=== PATIENT | female | born 1950 | race Caucasian/White ===

== ENCOUNTER 2016-07-14 03:09 | Emergency (ER) | payer OTHER ==
[~2016-07-14] VITALS: Ht 167.6 cm; Wt 86.3 kg
[~2016-07-14 03:09] MED LIST: ASPI1TAB2 PO; ATOR10TA82 PO; CALC-20 PO; GLUC10007 PO; LISI-725 PO; MULT-506 PO; RANI300T2 PO
[2016-07-14 03:18] VITALS: TEMP 37.3; Ht 167.6 cm; Wt 86.3 kg
[2016-07-14] MEDS ORDERED: OXYCODONE HCL IR 5 MG TAB (IMMEDIATE RELEASE) PO STA (03:21)
--- NOTE | 2016-07-14 04:43 | EMERGENCY ROOM VISIT NOTE ---
History First contact with patient: 03:19 Chief Complaint: LEG PAIN,LEG INJURY Stated Complaint: LEG PAIN History of Present Illness The patient is a 66 year old female who presents to the Emergency Room with complaints of severe left groin pain after trying to get up after couch watching TV. Patient states any movement makes it worse nothing makes it better. She did not fall. Patient denies back pain, numbness, tingling, thigh pain, knee pain, chest pain, dyspnea, fever, chills. No prior fracture to this area. Patient follows with Dr. Ceja for her back problems. Review of Systems See HPI for pertinent positives & negatives. A total of 10 systems reviewed and were otherwise negative. Past Medical/Surgical History Medical Problems: (1) Benign hypertension (2) Benign neoplasm of colon (3) Fever (4) Gastroesophageal reflux disease (5) Hypercholesterolemia (6) Localized, primary osteoarthritis of the lower leg (7) Lung mass (8) Rheumatoid arthritis (9) Syncope (10) Tobacco user Surgical Problems: (1) H/O: hysterectomy (2) History of tonsillectomy and adenoidectomy (3) Hx of appendectomy Family History Diabetes mellitus FH: cancer Hypertension Social History Smoking Status: Current Every Day Smoker Alcohol Use: none Drug Use: none Marital Status: Housing Status: lives with significant other Occupation Status: employed Current/Historical Medications Scheduled Aspirin (Lino Aspirin Ec Low Dose), 1 TAB PO QPM Atorvastatin (Lipitor), 10 MG PO QAM Calcium Carbonate-Vitamin D (Calcium 600 + D), 2 TABS PO QAM Glucosamine Sulfate (Glucosamine), 2,000 MG PO QAM Lisinopril (Zestril), 20 MG PO QAM Multivitamin (Multivitamin), 1 TAB PO QAM Ranitidine (Zantac), 150 MG PO QAM Allergies Coded Allergies: Wasp (Verified Allergy, Severe, mouth/tongue swelling, 07/10/16) Yellow Jacket (Verified Allergy, Severe, mouth/tongue swelling, 07/10/16) NO KNOWN DRUG ALLERGIES (Verified Allergy, Unknown, NKDA, 07/10/16) Physical Exam Vital Signs Date Time Temp Pulse Resp B/P Pulse Ox O2 Delivery O2 Flow Rate FiO2 07/14/16 04:20 74 18 149/84 98 Room Air 07/14/16 03:18 37.3 66 18 147/49 100 Room Air Physical Exam VITALS: Vitals are noted on the nurse's note and reviewed by myself. Vital signs stable. GENERAL: Pleasant female, in no acute distress, nondiaphoretic, well-developed well-nourished. SKIN: Capillary reflex less than 2 seconds. HEENT: Normocephalic. PERRLA. EOMI. Nares patent. Mucous membranes moist. Neck is supple without nuchal rigidity. HEART: Regular rate and rhythm without murmurs gallops or rubs. LUNGS: Clear to auscultation bilaterally without wheezes, rales or rhonchi. No retractions or accessory muscle use. ABDOMEN: Positive bowel sounds x 4. Normal tympanic percussion. Soft, nontender, without masses or organomegaly. Reyna sign negative. No guarding or rebound tenderness. MUSCULOSKELETAL: No gross musculoskeletal defects. No pedal edema. No calf tenderness. Pelvis stable, left groin tender to palpation with increased pain with range of motion, no erythema, edema or warmth or palpable abscess, left thigh, knee nontender to palpation with pedal pulses +2 equal present bilaterally. No thoracic or lumbar tenderness on exam. NEURO: Patient was alert and oriented to person place and time. Normal sensation to light and sharp touch. No focal neurological deficits. Medical Decision & Procedures Medications Administered Medications (Trade) Dose Ordered Sig/Jenny Route Start Time Stop Time Status Last Admin Dose Admin Oxycodone HCl (Roxicodone Immediate Rel Tab) 5 mg NOW STAT PO 07/14/16 03:21 07/14/16 03:24 DC 07/14/16 03:27 5 MG ED Course Prior records reviewed and summarized above. Triage Nursing notes reviewed. Additional history obtained from family. The patient's history was concerning for left groin pain. Differential diagnosis: Etiologies such as fracture, strain, sprain, hernia, dislocation, neurovascular compromise, compartment syndrome, soft tissue injury, as well as others were entertained. Physical examination: Consistent with an isolated hip injury. ER treatment provided: OxyIR Bedrest On reassessment the patient felt better. Diagnostics interpreted by me: Imaging studies: CT LEFT HIP: Compared with CT abdomen and pelvis 01/28/16. No fracture or dislocation. Small left hip joint effusion. 1.6 x 5.5 cm fluid collection anterior to the ileus psoas muscle that is likely iliopsoas bursitis. Consider correlation with MRI Radiologist: Nikolas Skelton M.D. The patient has an isolated left iliopsoas bursitis. Patient then stated that she's had this before. Initially she denied having any problems with this hip and then remember that she did. She even states she's had this drained before. She is advised to follow-up orthopedics for further evaluation and treatment for this. Patient felt much better to be medicated as above. She has a walker at home and is advised to use this for ambulation. Patient was neurovascularly and neurologically intact. No fracture on CT.. She is advised to follow-up with her family doctor and/or orthopedic spine doctor in a few days or here in the ER sooner severe pain, numbness, tingling, worsening signs or symptoms or as needed. Patient did not have acute abdomen on exam. Pelvis is stable. No fracture. She was well-appearing. She is discharged home in stable condition with her . Discharge instructions: Follow-up family care DrSonam in 2-3 days. Case reviewed with my attending Medical Decision As above Impression Primary Impression: Iliopsoas bursitis of left hip Departure Information Dispostion Home / Self-Care Condition GOOD Referrals Victor Hugo Walker M.D. (PCP) Patient Instructions My [facility] Additional Instructions DO NOT drive, drink alcohol, operate machinery, or perform dangerous activities today. You were given medications in the ER that can affect your ability to safely function or operate a vehicle. Oxycodone (OxyIR) 5mg: Take 1-2 pills every four hours for breakthrough pain. Avoid alcohol, operating machinery or dangerous equipment, working on ladders or roofs, DRIVING, or situations where being under the influence may be dangerous. It is recommended to use an [id number] stool softener such as Colace, 100mg twice daily while taking this medication to avoid constipation. Acetaminophen(Tylenol) may be used for fever or pain. Use 1000mg every six hours as needed. Avoid using more than 3000mg in a 24 hour period. This medication can be taken if you need to drive, work, or perform activities which may be dangerous when taking narcotic pain medication. Use your walker to ambulate. Rest and avoid heavy lifting until your symptoms resolve and then gradually return to full activity. A good rule of thumb is if it hurts your hip to perform a certain activity, then it should be avoided until you are healthy again. A heating pad, warm compresses, or a hot shower may help with tight muscles and can be done several times a day as needed. Continue current medications. Return to the ER immediately for any numbness, tingling, severe pain, loss of control of your bowels or bladder, inability to walk, or as needed. Follow up with your primary care physician/orthopedics within 3-5 days for a recheck of your current condition.
[2016-07-14] MEDS ORDERED: OXYC1TAB3 PO (04:44)
[2016-07-14] MEDS ORDERED: OXYCODONE IR HOME PACK PO ONE (04:45)
[2016-07-14 04:52] VITALS: BP 149/84; PULSE 74; O2SAT 98
--- NOTE | 2016-07-14 07:08 | EMERGENCY ROOM VISIT NOTE ---
ED Visit Note First contact with patient: 03:19 I have personally evaluated and examined this patient. I agree with assessment and plan of Steffany Villalpando PA-C. Left bursitis consistent with history of having happened before. No current evidence of sepsis nor n/v compromise.
--- NOTE | 2016-07-14 08:41 | DIAGNOSTIC IMAGING REPORT ---
CT SCAN OF THE LEFT HIP WITHOUT IV CONTRAST CLINICAL HISTORY: Left hip and groin pain. No reported history of trauma. COMPARISON STUDY: Radiographs of the bony pelvis dated 02/01/2016. TECHNIQUE: CT scan of the left hip is performed from the bony pelvis to the proximal femoral shaft. Images are reviewed in the axial, sagittal, and coronal planes. IV contrast was not administered for this examination. Note that interpretation is suboptimal without current plain film correlate. CT DOSE: 811.25 mGy.cm FINDINGS: The skeletal structures are osteopenic. No fracture is identified in the left hip or the visualized left hemipelvis. Minimal arthritic change is noted in the left hip. No lytic or blastic lesions are identified. Enthesophytes arise from the greater trochanter of the proximal femur. A small osteochondroma arises posteriorly from the subtrochanteric femur and measures up to 1.9 cm. There is a trace joint effusion. Mild bursal fluid is noted. The musculature surrounding the left hip and in the upper thigh is normal in appearance. There is no left pelvic sidewall or left inguinal lymphadenopathy. The bladder is normal as imaged. The uterus is surgically absent. IMPRESSION: 1. Generalized osteopenia. No fracture is seen. 2. Findings suggest iliopsoas bursitis. 3. Trace joint effusion. Dictated: 07/14/2016 7:57 AM Transcribed: 07/14/2016 8:40 AM [facility] Electronically signed by: Rolando Stanley M.D. 07/14/2016 8:48 AM Dictated Date/Time: 07/14/2016 7:57 AM
[2016-10-23] MEDS ORDERED: FOLI1TAB7 PO (06:04)
[2016-10-23] MEDS ORDERED: MTH25 PO (06:04)
== END 2016-07-14 04:59 | disposition home or self-care (01) ==
LOC: EDBD 03:09 → C.EDA 03:10
DX: M76.12 Psoas tendinitis, left hip (principal); I10 Essential (primary) hypertension; K21.9 Gastro-esophageal reflux disease without esophagitis; E78.00 Pure hypercholesterolemia, unspecified; M06.9 Rheumatoid arthritis, unspecified; Z86.018 Personal history of other benign neoplasm; F17.210 Nicotine dependence, cigarettes, uncomplicated; Z83.3 Family history of diabetes mellitus; Z80.9 Family history of malignant neoplasm, unspecified; Z82.49 Family history of ischemic heart disease and other diseases of the circulatory system; Z79.82 Long term (current) use of aspirin; Z79.899 Other long term (current) drug therapy

== ENCOUNTER 2016-07-27 10:21 | Observation (INO) | payer OTHER ==
--- NOTE | 2016-07-10 08:54 | PAT Medication Instructions ---
Service Date Jul 10, 2016. Current Home Medication List Aspirin (Lino Aspirin Ec Low Dose), 1 TAB PO QPM Atorvastatin (Lipitor), 10 MG PO QAM Calcium Carbonate-Vitamin D (Calcium 600 + D), 2 TABS PO QAM Glucosamine Sulfate (Glucosamine), 2,000 MG PO QAM Lisinopril (Zestril), 20 MG PO QAM Multivitamin (Multivitamin), 1 TAB PO QAM Ranitidine (Zantac), 150 MG PO QAM Medication Instructions For Your Scheduled Surgery - Hold the following medications 2 weeks prior to surgery: Glucosamine Sulfate (Glucosamine), 2,000 MG PO QAM - Hold the following medications the morning of surgery: Lisinopril (Zestril), 20 MG PO QAM Multivitamin (Multivitamin), 1 TAB PO QAM Calcium Carbonate-Vitamin D (Calcium 600 + D), 2 TABS PO QAM - Take the following medications the morning of surgery with a sip of water OTHERWISE NOTHING TO EAT OR DRINK AFTER MIDNIGHT: Ranitidine (Zantac), 150 MG PO QAM Atorvastatin (Lipitor), 10 MG PO QAM - Take the following medications as scheduled the night before surgery: Aspirin (Lino Aspirin Ec Low Dose), 1 TAB PO QPM If you have any questions please call us at [phone] or [phone] or [phone]
[2016-07-10 09:25] LABS: BASO % 0.5 %; BASO ABS # 0.03 K/uL (0-0.2); COMPLETE YES; EOS % 0.5 %; HEMATOCRIT 38.8 % (37-47); IG% 0.2 %; LYMPH % 21.2 %; MEAN CELL VOLUME 92.2 fL (80-100); MEAN CORPUSCULAR HEMOGLOBIN 31.1 pg (25-34); MEAN CORPUSCULAR HGB CONC 33.8 g/dl (32-36); MEAN PLATELET VOLUME 10.3 fL (7.4-10.4); NEUT % 70.6 %; PLATELET COUNT 211 K/uL (130-400); RED BLOOD COUNT 4.21 M/uL (4.2-5.4); WHITE BLOOD COUNT 6.12 K/uL (4.8-10.8)
[2016-07-10 09:26] LABS: URINE APPEARANCE CLEAR (CLEAR); URINE BILIRUBIN NEG (NEG); URINE COLOR YELLOW; URINE NITRITE NEG (NEG); URINE PH 6.5 (4.5-7.5); URINE SPECIFIC GRAVITY 1.005 (1.000-1.030); UROBILINOGEN NEG (NEG)
[2016-07-10 09:33] LABS: PROTHROMBIN TIME (PATIENT) 10.2 SECONDS (9.0-12.0)
[2016-07-10 09:34] LABS: MANUAL MICROSCOPIC REQUIRED? NO; REVIEW REQ? NO
[2016-07-10 11:18] LABS: BUN/CREATININE RATIO 13.5 (10-20); CALCIUM 9.6 mg/dl (8.5-10.1); CREATININE 1.1 mg/dl (0.60-1.20); POTASSIUM 4.5 mmol/L (3.5-5.1)
--- NOTE | 2016-07-24 10:23 | HISTORY & PHYSICAL EXAMINATION ---
DATE OF ADMISSION: 07/27/2016 SUBJECTIVE CHIEF COMPLAINT: She presents with low back pain and lower right extremity numbness, tingling and pain. HISTORY OF PRESENT ILLNESS: Estrella is a 66-year-old female who presents to the office today with significant low back pain, right leg radiculopathy. She has significant back pain with standing, walking and ambulation. His pain is alleviated with rest. She described no fevers, sweats or chills. She has tried conservative measures including some therapy medication. PAST MEDICAL HISTORY: Primarily history includes rheumatoid arthritis, high blood pressure. PAST SURGICAL HISTORY: Includes hysterectomy and appendectomy. ALLERGIES: No allergies to medications. CURRENT MEDICATIONS: List includes omeprazole, ranitidine, lisinopril, glucosamine, multivitamin, aspirin and calcium with vitamin D. FAMILY MEDICAL HISTORY: Negative for heart disease, stroke, diabetes, blood clots, DVTs and cancer. SOCIAL HISTORY: , never drinks. Does not use tobacco. Moderately active lifestyle. REVIEW OF SYSTEMS: CONSTITUTIONAL: Positive for fatigue. RESPIRATORY: Positive for cough. GASTROINTESTINAL: Positive for nausea, heartburn. MUSCULOSKELETAL: Positive for weakness. PHYSICAL EXAMINATION: GENERAL: She is alert and oriented x3. She is in a moderate amount of distress with pain. HEAD, EYES, EARS, NOSE, AND THROAT EXAMINATION: Normal. EXTREMITIES: She does have demonstrable significant pain with straight leg raise on the right. No pain with straight leg raises on the left. No deficit as far as motor strength is concerned on the left versus the right. She does have appropriate reflexes bilaterally. No clonus was noted. DIAGNOSTIC STUDIES: MRI was reviewed in our office today. There is a significant disc herniation impinging upon the right exiting neural foramen at the L4-5 lumbar segment. There is no significant spondylolisthesis. ASSESSMENT DIAGNOSES: Significant disc herniation at L4-5 level impinging upon the right exiting neural foramen. PLAN: At this time, we did offer her surgery today. Surgery would be a discectomy at the L4-5 level, removal of that disc impinging on the right neural foramen. We will assess her intraoperatively for any instability, may possibly use Globus instrumentation to fuse her if she becomes unstable intraoperatively. For now, will just be a formal discectomy at L4-5. We discussed the surgery at length. We discussed the risks and benefits as well. We did provide her with a back brace for support postoperatively. Pain meds were given as well. We will follow her up 2 weeks postop for evaluation and suture removal.
[~2016-07-27] VITALS: Ht 167.6 cm; Wt 84.1 kg
[~2016-07-27 10:21] MED LIST changes: +CEFAZOLIN 2000 MG/60 ML D5W 60 ML IV SCH; +LACTATED RINGER'S 1000ML 1,000 ML IV SCH; +NSS 1000ML IV SCH; +OXYC1TAB3 PO
[2016-07-27 10:35] VITALS: Ht 167.6 cm; Wt 84.1 kg
[2016-07-27] MEDS ORDERED: MIDAZOLAM HCL 1 MG/ML 2ML VIAL ONE (12:00)
[2016-07-27] MEDS ORDERED: FENTANYL CITRATE INJ 50 MCG/1 ML 2 ML VIAL ONE ×2 (12:00)
[2016-07-27] MEDS ORDERED: LIDOCAINE HCL 2% 2 ML VIAL (20MG/ML) ONE (13:12)
[2016-07-27] MEDS ORDERED: ONDANSETRON INJ 2 MG/ML 2 ML VIAL ONE (13:12)
[2016-07-27] MEDS ORDERED: NEOSTIGMINE METHYLSULFATE 5 MG/5 ML SYR ONE (13:12)
[2016-07-27] MEDS ORDERED: EpHEDrine SULFATE 50MG/5ML SYR ONE (13:12)
[2016-07-27] MEDS ORDERED: LARYING-O-JET KIT (LTA) EXT ONE ×2 (13:12)
[2016-07-27] MEDS ORDERED: DEXAMETHASONE SOD INJ 4 MG/ML VIAL ONE (13:12)
[2016-07-27] MEDS ORDERED: CISATRACURIUM BESYLATE IV SOLN 2 MG/ML 10 ML VIAL ONE (13:12)
[2016-07-27] MEDS ORDERED: PROPOFOL IV EMULSION 10 MG/ML 20 ML VIAL IV ONE (13:12)
[2016-07-27] MEDS ORDERED: GLYCOPYRROLATE INJ 0.2 MG/ML VIAL ONE ×2 (13:12→14:56)
[2016-07-27] MEDS ORDERED: GELATIN SPONGE SZ 100 ONE (13:33)
[2016-07-27] MEDS ORDERED: BUPIVACAINE/EPINEPHRINE 0.5% MPF 1:200,000 30 ML VIAL ONE (13:33)
[2016-07-27] MEDS ORDERED: THROMBIN FOR SOLN 20000 UNIT KIT ONE (13:33)
[2016-07-27] MEDS ORDERED: VANCOMYCIN HCL 1000MG/20ML VIAL ONE (13:34)
[2016-07-27] MEDS ORDERED: BACITRACIN 50000 UNIT VIAL ONE (13:34)
--- NOTE | 2016-07-27 13:55 | History & Physical Bridge Note ---
H&P Re-Evaluation Bridge Note: I have examined the patient, reviewed the History & Physical and in the interval since the performance of the History & Physical I have noted the following changes of clinical significance: No changes noted
[2016-07-27] MEDS ORDERED: HYDROmorphone INJ 2 MG/ML SYR/VIAL ONE (14:53)
--- NOTE | 2016-07-27 15:40 | [facility] Post Operative Brief Note ---
Immediate Operative Summary Operative Date Jul 27, 2016. Pre-Operative Diagnosis Disc herniation L4-L5 Post-Operative Diagnosis same as pre-operative Procedure(s) Performed L4-L5 Discectomy Surgeon Dr. Juan Diego Ceja Actimize Architect Surgeon(s) Lawson Ludwig PA-C Estimated Blood Loss 75ml Findings stenosis and herniation Specimens none per surgeon Complication(s) None Disposition Recovery Room / PACU
[2016-07-27] MEDS ORDERED: LORAZEPAM INJ 1 MG in SYRINGE 0.5 ML IV PRN (15:45)
[2016-07-27] MEDS ORDERED: ONDANSETRON INJ 2 MG/ML 2 ML VIAL IV PRN ×2 (15:45)
[2016-07-27] MEDS ORDERED: EpHEDrine SULFATE INJ 50 MG/ML AMP IV PRN (15:45)
[2016-07-27] MEDS ORDERED: HYDROmorphone INJ 1 MG/ML SYR IV PRN (15:45)
[2016-07-27] MEDS ORDERED: OXYCODONE/ACETAMINOPHEN 5-325 TAB PO PRN ×2 (15:45)
[2016-07-27] MEDS ORDERED: MAGNESIUM HYDROXIDE SUSP 30 ML UDC PO PRN (15:45)
[2016-07-27] MEDS ORDERED: PROMETHAZINE HCL INJ 12.5 MG in SODIUM CHLORIDE 0.9% 50ML 50 ML IV PRN ×4 (15:45)
[2016-07-27] MEDS ORDERED: NALOXONE HCL 0.4 MG/1 ML VIAL/CARP IV PRN (15:45)
[2016-07-27] MEDS ORDERED: METOCLOPRAMIDE HCL INJ 5 MG/ML 2 ML VIAL IV PRN (15:45)
[2016-07-27] MEDS ORDERED: LABETALOL HCL IV 5 MG/ML 20ML IV PRN (15:45)
[2016-07-27] MEDS ORDERED: ATROPINE SULFATE 0.1 MG/ML 5ML SYR IV PRN (15:45)
[2016-07-27] MEDS ORDERED: LORAZEPAM 1 MG TAB PO PRN (15:45)
[2016-07-27] MEDS ORDERED: HYDROmorphone INJ 2 MG/ML SYR/VIAL IV PRN (15:45)
[2016-07-27] MEDS ORDERED: HYDROmorphone INJ 0.5 MG/0.5 ML SYR IV PRN (15:45)
[2016-07-27] MEDS ORDERED: LABETALOL HCL IV 5 MG/ML 20ML IV ONE ×2 (16:05→16:20)
--- NOTE | 2016-07-27 16:15 | Anesthesiology Progress Note ---
Anesthesia Post Op Note Date & Time Jul 27, 2016 at 16:14 Vital Signs Pain Intensity: 0 Vital Signs Past 12 Hours Date Time Temp Pulse Resp B/P Pulse Ox O2 Delivery O2 Flow Rate FiO2 07/27/16 16:05 60 16 179/73 100 Nasal Cannula 4 07/27/16 15:55 75 16 185/84 100 Mask 10 07/27/16 15:46 92 16 177/74 100 Mask 10 07/27/16 15:37 36.7 91 16 177/83 100 Mask 10 Notes Mental Status: alert / awake / arousable, participated in evaluation Pt Amnestic to Procedure: Yes Nausea / Vomiting: adequately controlled Pain: adequately controlled Airway Patency, RR, SpO2: stable & adequate BP & HR: stable & adequate Hydration State: stable & adequate Anesthetic Complications: no major complications apparent
--- NOTE | 2016-07-27 16:35 | OPERATIVE REPORT ---
DATE OF OPERATION: 07/27/2016 PREOPERATIVE DIAGNOSIS: Disc herniation L4-5 lumbar and stenosis. POSTOPERATIVE DIAGNOSIS: Same. PROCEDURE: Include a laminectomy and discectomy, L4-L5 lumbar spine. SURGEON: Dr. Ceja. PROCESSING OPERATOR: Lawson Ludwig PA-C. COMPLICATIONS: Zero. BLOOD LOSS: Less than 100 mL. DESCRIPTION OF PROCEDURE: The patient taken to the operating room, a general intubated anesthetic provided to the patient, placed prone, prepped and draped sterile. We made a skin incision from 4 to the sacrum, dissecting the soft tissue. We localized the area with C-arm guidance. We cut down the laminectomy, favoring the right hand side, foraminotomy, partial facetectomy. We were able to retract the dura and do a formal discectomy with various sized pituitary rongeurs. This was first incised with 15 scalpel blade. We completed the foraminotomy, the nerve roots were probed and they were free of obstruction. We irrigated and closed over Hemovac drain over vancomycin powder with #1 Vicryl suture, 2-0 and 3-0 nylon on the skin. Sterile dressing applied. The patient returned to PACU stable. No apparent intraoperative complications. Sponge and needle count correct. No implants used. I attest to the content of the Intraoperative Record and any orders documented therein. Any exceptio ns are noted below.
--- NOTE | 2016-07-27 16:45 | DIAGNOSTIC IMAGING REPORT ---
INTRAOPERATIVE RADIOGRAPH CLINICAL HISTORY: L4-L5 discectomy. Fluoroscopy time: 3 seconds. FINDINGS: A single spot fluoroscopic view of the lower lumbar spine is presented. A surgical probe projects posteriorly at the level of L4. IMPRESSION: Intraoperative image from L4 -L5 discectomy as above. Electronically signed by: Rolando Stanley M.D. 07/27/2016 4:42 PM Dictated Date/Time: 07/27/2016 4:42 PM
[2016-07-27 17:00] VITALS: O2SAT 100
[2016-07-27 17:20] VITALS: BP 147/80; PULSE 66; TEMP 36.4; O2SAT 100
[2016-07-27 17:50] VITALS: BP 143/78; PULSE 68; TEMP 36.4; O2SAT 99
[2016-07-27] MEDS: SODIUM CHLORIDE 0.9% 1000ML 1,000 ML IV SCH (18:34)
[2016-07-27 18:52] VITALS: BP 176/73; PULSE 74; TEMP 36.3; O2SAT 97
[2016-07-27] MEDS ORDERED: ASPIRIN 81 MG ECTAB PO SCH (21:00)
[2016-07-27 21:06] VITALS: BP 151/75; PULSE 51; TEMP 36.6; O2SAT 98
[2016-07-27] MEDS: CEFAZOLIN IV 2,000 MG in DEXTROSE 5% 50ML 50 ML IV SCH (21:58)
[2016-07-27] MEDS: DEXAMETHASONE INJ 10 MG in SYRINGE 0 ML IV SCH (21:58)
[2016-07-27] MEDS: ACETAMINOPHEN 325 MG TAB PO PRN (21:58)
[2016-07-27 23:02] VITALS: BP 146/74; PULSE 55; TEMP 36.4; O2SAT 99
[2016-07-28] MEDS ORDERED: IV FLUIDS COMPLETED PRN (00:15)
[2016-07-28 03:26] VITALS: BP 120/67; PULSE 69; TEMP 36.4; O2SAT 97
[2016-07-28] MEDS: SODIUM CHLORIDE 0.9% 1000ML 1,000 ML IV SCH (04:09)
[2016-07-28] MEDS: DEXAMETHASONE INJ 10 MG in SYRINGE 0 ML IV SCH ×2 (05:19→13:34)
[2016-07-28] MEDS: CEFAZOLIN IV 2,000 MG in DEXTROSE 5% 50ML 50 ML IV SCH ×2 (05:19→13:42)
[2016-07-28] MEDS ORDERED: NURSING VERBAL MED ORDER ONE (05:30)
[2016-07-28] MEDS ORDERED: BISACODYL 5 MG TABEC PO PRN (06:00)
[2016-07-28] MEDS ORDERED: BISACODYL 10 MG SUPP PR PRN (06:00)
--- NOTE | 2016-07-28 07:54 | Discharge Instructions ---
Discharge Instructions Date of Service Jul 28, 2016. Admission Reason for Admission: Disc Herniation Discharge Discharge Diagnosis / Problem: as above Discharge Goals Goal(s): Improve function Activity Recommendations Activity Limitations: as noted below Lifting Limitations: until after follow-up appointment Exercise/Sports Limitations: until after follow-up appointment May Resume Sexual Activity: after follow-up appointment Shower/Bathe: keep incision dry . Current Hospital Diet Patient's current hospital diet: Regular Diet Discharge Diet Recommended Diet: Regular Diet Procedures Procedures Performed: L4-L5 Discectomy Pending Studies Studies pending at discharge: no Medical Emergencies . Who to Call and When: Medical Emergencies: If at any time you feel your situation is an emergency, please call 911 immediately. . Non-Emergent Contact Non-Emergency issues call your: Surgeon . "Provider Documentation" section prepared by Juan Diego Ceja. . VTE Core Measure Inpt VTE Proph given/why not?: Treatment not indicated
--- NOTE | 2016-07-28 08:01 | ORTHOPEDICS PROGRESS NOTE ---
DATE: 07/28/2016 SUBJECTIVE: Moderate complaints of pain. No chest pain or shortness of breath. She is alert, oriented. Vital signs stable, 36.4 temperature. Moves all extremities. ASSESSMENT: Status post lumbar spine laminectomy and discectomy L4-L5 lumbar spine. DISPOSITION: We will have her up ambulatory here today and this morning. Tentatively, she may be able to go home later on today around 3 or 4 o'clock in the afternoon depending on how she tolerates the morning.
[2016-07-28 08:05] VITALS: BP 105/63; PULSE 55; TEMP 36.7; O2SAT 97
--- NOTE | 2016-07-28 08:53 | Anesthesiology Progress Note ---
Anesthesia Post Op Note Date & Time Jul 28, 2016 at 08:51 Vital Signs Pain Intensity: 4.0 Vital Signs Past 12 Hours Date Time Temp Pulse Resp B/P Pulse Ox O2 Delivery O2 Flow Rate FiO2 07/28/16 08:08 Nasal Cannula 07/28/16 08:05 36.7 55 18 105/63 97 Room Air 07/28/16 03:26 36.4 69 16 120/67 97 Room Air 07/27/16 23:22 Room Air 07/27/16 23:02 36.4 55 16 146/74 99 Room Air 07/27/16 21:06 36.6 51 16 151/75 98 Room Air Notes Mental Status: alert / awake / arousable, participated in evaluation Pt Amnestic to Procedure: Yes Nausea / Vomiting: adequately controlled Pain: adequately controlled Airway Patency, RR, SpO2: stable & adequate BP & HR: stable & adequate Hydration State: stable & adequate Anesthetic Complications: no major complications apparent
[2016-07-28] MEDS ORDERED: ATORVASTATIN 10 MG TAB PO SCH (09:00)
[2016-07-28] MEDS ORDERED: RANITIDINE HCL 150 MG TAB PO SCH (09:00)
[2016-07-28] MEDS ORDERED: MULTIVITAMIN TAB PO SCH (09:00)
[2016-07-28] MEDS ORDERED: CALCIUM 600MG + VIT D 400 IU TAB PO SCH (09:00)
[2016-07-28] MEDS ORDERED: LISINOPRIL 20 MG TAB PO SCH (09:00)
[2016-07-28] MEDS ORDERED: GLUCOSAMINE SULFATE 500 MG CAP PO SCH (09:00)
[2016-07-28] MEDS ORDERED: POLYETHYLENE (MIRALAX) 17 GM PACK PO SCH (09:00)
[2016-07-28 09:03] VITALS: BP 105/63; PULSE 55; TEMP 36.7; O2SAT 97
[2016-07-28 10:35] VITALS: BP 127/73; PULSE 58; TEMP 36.7; O2SAT 98
[2016-07-28] MEDS: ACETAMINOPHEN 325 MG TAB PO PRN (11:26)
[2016-07-28 14:56] VITALS: BP 164/70; PULSE 70; TEMP 37.1; O2SAT 99
--- NOTE | 2016-08-06 11:46 | DISCHARGE SUMMARY ---
SUBJECTIVE: Minimal complaints of pain, no neurological deficit. No fevers, sweats, chills. OBJECTIVE: Wound clean, dry. Neurologically intact. ASSESSMENT: Status post discectomy lumbar spine, improved short run. DISPOSITION: Instructions, precautions, education. Follow up in the office in 10 days. Keep her wound clean and dry at all times. Careful with bending, stooping and lifting and instructions provided.
[2016-10-23] MEDS ORDERED: MTH25 PO (06:04)
[2016-10-23] MEDS ORDERED: FOLI1TAB7 PO (06:04)
== END 2016-07-28 16:24 | disposition home or self-care (01) ==
LOC: ENRESERVDT → ENRESERVTM → C.ACU 10:21 → C.3E 10:40
PROVIDERS: ADMIT Orthopaedic Surgery Orthopaedic Surgery of the Spine; ATTEND Orthopaedic Surgery Orthopaedic Surgery of the Spine
DX: M51.26 Other intervertebral disc displacement, lumbar region (principal); M48.06 Spinal stenosis, lumbar region; M06.9 Rheumatoid arthritis, unspecified; I10 Essential (primary) hypertension

== ENCOUNTER → 2016-10-23 | Day surgery (SDC) | payer OTHER ==
[~2016-10-23] VITALS: Ht 167.6 cm; Wt 84.0 kg
[~2016-10-23] MED LIST changes: +ACETAMINOPHEN 500 MG TAB PO PRN; -ATOR10TA82 PO; +ATOR10TA88 PO; -CEFAZOLIN 2000 MG/60 ML D5W 60 ML IV SCH; +FOLI1TAB7 PO; -LACTATED RINGER'S 1000ML 1,000 ML IV SCH; +MTH25 PO; -NSS 1000ML IV SCH
[2016-10-23 06:05] VITALS: BP 146/59; PULSE 82; TEMP 36.6; O2SAT 97; Ht 167.6 cm; Wt 84.0 kg
[2016-10-23 10:39] VITALS: BP 145/65; PULSE 60; TEMP 36.8; O2SAT 97
--- NOTE | 2016-10-23 10:47 | DIAGNOSTIC IMAGING REPORT ---
LUMBAR SPINE WITHOUT CLINICAL HISTORY: 66 years-old Female presenting with POST MYELOGRAM, unsuccessful attempt at myelogram, ordering physician would like to proceed with noncontrast CT. TECHNIQUE: Multidetector CT of the lumbar spine was performed without the use of intravenous contrast. IV contrast: None. A dose lowering technique was used consistent with the principles of ALARA (as low as reasonably achievable). COMPARISON: MR from 06/29/2016. CT DOSE: The estimated cumulative dose is 952.64 mGy.cm. FINDINGS: Pigment Making Supervisor topogram: Unremarkable. Vertebral body heights and alignment maintained. Intervertebral disc height loss preserved. Vacuum disc phenomenon noted at L4-5. Disc bulges evident at L3-4 through L5-S1. Presence of gas along the epidural space along the right L3-4 level likely relates to attempted myelogram. Apparent gas along the right lateral recess at L4-5 may relate to vacuum disc phenomenon-related gas within a disc protrusion rather than epidural postprocedural gas as this level was not targeted. Postsurgical changes of partial resection of the L4 spinous process. Multilevel degenerative changes further detailed below: T12-L1: Normal. L1-2: Normal. L2-3: Mild facet arthropathy. No significant neural foraminal or spinal canal narrowing. L3-4: Disc bulge with significant facet arthropathy and ligamentum flavum thickening result in narrowing of the spinal canal. Mild bilateral neural foraminal narrowing. L4-5: Disc bulge and suspected protrusion in the right lateral recess with significant facet arthropathy and ligamentum flavum thickening result in anterolateral spinal canal narrowing. However, partial posterior decompression is also noted. Moderate bilateral neural foraminal narrowing. Mass effect on the exiting right L4 nerve root likely. L5-S1: Disc bulge and facet arthropathy without significant neural foraminal or spinal canal narrowing. Infiltration overlying the surgical bed likely relates to medication administration and attempted myelogram. No convincing evidence of paraspinal inflammatory change. Atherosclerosis of the abdominal aorta. Extrarenal pelvises bilaterally. IMPRESSION: 1. Multilevel degenerative changes in the lower lumbar spine. Degenerative changes are most severe at L4-5 with disc bulge and suspected disc protrusion effacing the right lateral recess. Mass effect on the exiting L4 nerve root likely. This would be better demonstrated on noncontrast MR. Spinal canal narrowing anterolaterally at L4-5, although postsurgical changes of partial resection of the L4 spinous process results in posterior decompression. Varying degrees of neural foraminal narrowing most severe at L4-5. 2. Postprocedural gas along the right lateral epidural space at L3-4. Electronically signed by: Johnathan Crouch M.D. 10/23/2016 10:46 AM Dictated Date/Time: 10/23/2016 10:32 AM
--- NOTE | 2016-10-23 10:55 | Discharge Instructions ---
Discharge Instructions Procedure Procedure Date: Oct 23, 2016. Reason for visit: Lumbar Spine, Disc Herniation. Discharge Discharge Date: Oct 23, 2016. Discharge Diagnosis: Unsuccessful myelogram for lumbar spine herniation Medications Restart Stopped Medication(s): Resume home meds. Instructions Activity Recommendations: No limitations Return to School/Work: no limitations Recommended Home Diet: No Limitations Provider Instructions: Thecal sac not accessed. No intrathecal administration of contrast or return of CSF. Therefore, patient should have no restrictions. Discharge home at noon. Allergies Coded Allergies: Wasp (Verified Allergy, Severe, mouth/tongue swelling, 10/23/16) Yellow [place]et (Verified Allergy, Severe, mouth/tongue swelling, 10/23/16) [place] Recommendations: Call your doctor if: * Temperature above 101 degrees * Pain not relieved by pain medicine ordered * There is increased drainage or redness from any incision * You have any unanswered questions or concerns. Your Doctors Instructions noted above were prepared by provider Johnathan Crouch. Patient Signature Section: Patient Instructions Signature Page Estrella Delacruz Patient (or Guardian) Signature/Date: I have read and understand the instructions given to me by my caregivers. Caregiver/RN/Doctor Signature/Date: The above-named patient and/or guardian has received patient instructions on this date. + Original Patient Signature Page (only) stays with chart. Please make copy for patient.
[2016-10-23 11:11] VITALS: BP 143/74; PULSE 55; O2SAT 97
[2016-10-23 11:56] VITALS: BP 156/68; PULSE 63; TEMP 36.3; O2SAT 99
--- NOTE | 2016-10-23 13:45 | DIAGNOSTIC IMAGING REPORT ---
FLUORO UP TO 1 HOUR CLINICAL HISTORY: 66 years-old Female presenting with degenerative disc disease. COMPARISON: MR from 06/29/2016. PROCEDURE: The procedure, risks and benefits were discussed with the patient including the risk of spinal headache, bleeding and infection. The patient agreed to the procedure and informed written consent was obtained. The procedure was performed by Dr. Crouch following a timeout. The L3-4 interspinous space was targeted. Skin overlying the space was prepped and draped in the usual aseptic fashion and local anesthesia was achieved with 1% lidocaine. Under intermittent fluoroscopic guidance, attempts were made to introduce a 22-gauge 3 1/2 inch spinal needle into the thecal sac. Unfortunately, this was unsuccessful. The patient was unable to proceed with further attempts. Therefore, no intrathecal contrast was administered. Fluoroscopy dosage: Not available. mGys. Fluoroscopy time: 1.6 minutes. Number of fluoroscopic spot images: 0. IMPRESSION: 1. Unsuccessful fluoroscopic guided myelogram. After discussion with the ordering physician, subsequent CT will be performed without the use of intravenous contrast. If there is continuing clinical concern, noncontrast MR could substitute for CT myelogram in the future. Electronically signed by: Johnathan Crouch M.D. 10/23/2016 1:44 PM Dictated Date/Time: 10/23/2016 1:40 PM
== END | disposition home or self-care (01) ==
LOC: C.ACU 05:44
PROVIDERS: ATTEND Orthopaedic Surgery Orthopaedic Surgery of the Spine
DX: M51.26 Other intervertebral disc displacement, lumbar region (principal); Z53.8 Procedure and treatment not carried out for other reasons

== ENCOUNTER → 2016-10-28 | Outpatient (CLI) | payer OTHER ==
[~2016-10-28] MED LIST changes: -ACETAMINOPHEN 500 MG TAB PO PRN
[2016-10-28 16:51] LABS: BASO % 0.4 %; BASO ABS # 0.03 K/uL (0-0.2); COMPLETE YES; EOS % 1.2 %; HEMATOCRIT 41.9 % (37-47); IG% 0.1 %; LYMPH % 31.9 %; LYMPH ABS # 2.15 K/uL (1.2-3.4); MEAN CELL VOLUME 92.3 fL (80-100); MEAN CORPUSCULAR HEMOGLOBIN 30.2 pg (25-34); MEAN CORPUSCULAR HGB CONC 32.7 g/dl (32-36); MEAN PLATELET VOLUME 10.5 fL (7.4-10.4); MONO % 7.7 %; NEUT % 58.7 %; PLATELET COUNT 260 K/uL (130-400); RED BLOOD COUNT 4.54 M/uL (4.2-5.4); WHITE BLOOD COUNT 6.74 K/uL (4.8-10.8)
[2016-10-28 16:55] LABS: URINE APPEARANCE CLEAR (CLEAR); URINE BILIRUBIN NEG (NEG); URINE COLOR YELLOW; URINE NITRITE NEG (NEG); URINE PH 6.5 (4.5-7.5); UROBILINOGEN NEG (NEG)
[2016-10-28 17:00] LABS: BLOOD UREA NITROGEN 15 mg/dl (7-18); BUN/CREATININE RATIO 12.2 (10-20); CALCIUM 9.6 mg/dl (8.5-10.1); CARBON DIOXIDE 30 mmol/L (21-32); CHLORIDE 105 mmol/L (98-107); GLUCOSE 128 mg/dl (70-99); POTASSIUM 3.7 mmol/L (3.5-5.1); SODIUM 141 mmol/L (136-145)
[2016-10-28 17:01] LABS: INR 0.9 (0.9-1.1); PROTHROMBIN TIME (PATIENT) 10.1 SECONDS (9.0-12.0)
[2016-10-28 17:06] LABS: MANUAL MICROSCOPIC REQUIRED? NO; REVIEW REQ? YES
--- NOTE | 2016-10-28 17:40 | DIAGNOSTIC IMAGING REPORT ---
MRI OF THE LUMBAR SPINE WITHOUT CONTRAST CLINICAL HISTORY: Low back pain radiating into right lower extremity. Previous spine surgery. COMPARISON STUDY: Lumbar spine MRI June 29, [address] October 23, 2016. TECHNIQUE: Utilizing a 1.5 [place] magnet and dedicated coil, multiplanar, multiecho imaging of the lumbar spine was performed without IV contrast. FINDINGS: For purposes of numbering on this exam, the L5-S1 disc space is assigned to axial image 27 of 30. There is 4 mm anterolisthesis of L4 and L5. There are postoperative findings consistent with an L4-5 discectomy and laminectomy. Signal abnormality within the operative bed is within normal limits. There is no intracanalicular mass or fluid collection. Conus terminates at the mid L1 level. The paravertebral soft tissues are unremarkable. There is no suspicious marrow replacement. There is no fracture. L1-2: The central canal and neural foramen are patent. L2-3: The central canal and neural foramen are patent. There is mild facet arthrosis. L3-4: There is mild disc bulge, ligamentous hypertrophy and facet arthrosis that result in mild narrowing of the central canal, lateral recesses and neural foramen. L4-5: There is a disc bulge with a right paracentral 1 cm x 0.5 cm adjacent abnormality that suggests a disc protrusion. Postsurgical change could appear similar. There is moderate narrowing of the right lateral recess and right neural foramen. There is mild to moderate narrowing of the left neural foramen. L5-S1: Central canal and neural foramen are patent. IMPRESSION: 1. Status post L4-L5 discectomy and laminectomy. 2. Disc bulge with superimposed right paracentral abnormality at L4-L5 that measures 1 x 0.5 cm. A disc protrusion with mass effect upon the descending right L5 nerve root is favored. Postsurgical change could appear similar although is considered less likely. 3. Otherwise, mild multilevel degenerative changes of the lumbar spine. Electronically signed by: Manohar Gleason M.D. 10/28/2016 5:39 PM Dictated Date/Time: 10/28/2016 4:04 PM
== END | disposition home or self-care (01) ==
LOC: C.MRIBC 14:57
PROVIDERS: ATTEND Orthopaedic Surgery Orthopaedic Surgery of the Spine
DX: Z01.812 Encounter for preprocedural laboratory examination (principal); M48.06 Spinal stenosis, lumbar region; M51.26 Other intervertebral disc displacement, lumbar region

== ENCOUNTER 2016-11-02 08:02 | Inpatient (IN) | payer OTHER ==
[2016-11-02] VITALS (7 sets, daily range): BP systolic 93–148; BP diastolic 56–87; PULSE 46–67; TEMP 36.3–36.8; O2SAT 97–100; Ht 167.6 cm; Wt 84.5 kg
[~2016-11-02] VITALS: Ht 167.6 cm; Wt 84.5 kg
[~2016-11-02 08:02] MED LIST changes: +CEFAZOLIN 2000 MG/60 ML D5W 60 ML IV SCH; -GLUC10007 PO; +LACTATED RINGER'S 1000ML 1,000 ML IV SCH; +LACTATED RINGER'S 1000ML IV SCH; -OXYC1TAB3 PO
[2016-11-02] MEDS ORDERED: MIDAZOLAM HCL 1 MG/ML 2ML VIAL ONE (08:59)
[2016-11-02] MEDS ORDERED: FENTANYL CITRATE INJ 50 MCG/1 ML 2 ML VIAL ONE (08:59)
[2016-11-02] MEDS ORDERED: ONDANSETRON INJ 2 MG/ML 2 ML VIAL IV PRN (09:15)
[2016-11-02] MEDS ORDERED: ATROPINE SULFATE 0.1 MG/ML 5ML SYR IV PRN (09:15)
[2016-11-02] MEDS ORDERED: EpHEDrine SULFATE INJ 50 MG/ML AMP IV PRN (09:15)
[2016-11-02] MEDS ORDERED: HYDROmorphone INJ 2 MG/ML SYR/VIAL IV PRN (09:15)
[2016-11-02] MEDS ORDERED: PHENYLEPHRINE 100MCG/ML 5ML SYR IV PRN (09:15)
[2016-11-02] MEDS ORDERED: THROMBIN FOR SOLN 20000 UNIT KIT ONE (09:35)
[2016-11-02] MEDS ORDERED: GELATIN SPONGE SZ 100 ONE (09:35)
[2016-11-02] MEDS ORDERED: BUPIVACAINE/EPINEPHRINE 0.5% MPF 1:200,000 10 ML VIAL ONE ×3 (09:36→10:03)
[2016-11-02] MEDS ORDERED: VANCOMYCIN HCL 1000MG/20ML VIAL ONE (09:36)
[2016-11-02] MEDS ORDERED: BACITRACIN 50000 UNIT VIAL ONE (09:36)
--- NOTE | 2016-11-02 09:36 | History and Physical ---
History & Physical Date Nov 02, 2016. Chief Complaint Back and leg pain History of Present Illness The patient is a 66 year old female with complaints of back and lower extremity difficulty. Incapacitating in nature. A diagnosis of spinal listhesis and nerve root entrapment L4 5 lumbar spine Past Medical/Surgical History Medical Problems: (1) Benign hypertension (2) Benign neoplasm of colon (3) Fever (4) Gastroesophageal reflux disease (5) Hypercholesterolemia (6) Localized, primary osteoarthritis of the lower leg (7) Lumbar disc herniation (8) Lung mass (9) Rheumatoid arthritis (10) Syncope (11) Tobacco user Surgical Problems: (1) H/O: hysterectomy (2) History of tonsillectomy and adenoidectomy (3) Hx of appendectomy Additional History Hepatic Disease: No Endocrine Disorder: No Kidney Disease: No Hypertension: No Heart Disease: No Bleeding Tendencies: No Infectious Diseases: No Allergies Coded Allergies: Wasp (Verified Allergy, Severe, mouth/tongue swelling, 11/02/16) Yellow Jacket (Verified Allergy, Severe, mouth/tongue swelling, 11/02/16) Home Medications Scheduled Aspirin (Lino Aspirin Ec Low Dose), 1 TAB PO QPM Atorvastatin (Lipitor), 10 MG PO QAM Calcium Carbonate-Vitamin D (Calcium 600 + D), 2 TABS PO QAM Folic Acid (Folvite), 1 MG PO DAILY Lisinopril (Zestril), 20 MG PO QAM Methotrexate (Methotrexate), 15 MG PO WK Multivitamin (Multivitamin), 1 TAB PO QAM Ranitidine (Zantac), 150 MG PO QAM Physical Examination Skin: warm/dry Eyes: normal inspection ENT: normal ENT inspection Head: normocephalic Neck: supple Respiratory/Chest: lungs clear Cardiovascular: regular rate, rhythm Abdomen / GI: normal bowel sounds Back: normal inspection Extremities: + pertinent finding (back pain and lower extremity difficulty pain with straight leg raising and associated weakness.) Diagnosis Spondylolisthesis L4 V nerve root entrapment L4 5 disc herniation L4 5 lumbar spine ASA Classification: ASA Class III Plan of Treatment Discectomy L4-L5 lumbar spine possible fusion L4 5
[2016-11-02] MEDS ORDERED: HYDROmorphone INJ 2 MG/ML SYR/VIAL ONE (10:19)
[2016-11-02] MEDS ORDERED: GLYCOPYRROLATE INJ 0.2 MG/ML VIAL ONE (11:05)
[2016-11-02] MEDS ORDERED: PROPOFOL IV EMULSION 10 MG/ML 20 ML VIAL IV ONE (11:05)
[2016-11-02] MEDS ORDERED: NEOSTIGMINE METHYLSULFATE 5 MG/5 ML SYR ONE (11:05)
[2016-11-02] MEDS ORDERED: ONDANSETRON INJ 2 MG/ML 2 ML VIAL ONE ×2 (11:05→12:46)
[2016-11-02] MEDS ORDERED: LIDOCAINE HCL 2% 2 ML VIAL (20MG/ML) ONE (11:06)
[2016-11-02] MEDS ORDERED: EpHEDrine SULFATE 50MG/5ML SYR ONE (11:06)
[2016-11-02] MEDS ORDERED: ROCURONIUM BROMIDE 10 MG/ML 5 ML VIAL ONE (11:06)
[2016-11-02] MEDS ORDERED: EpHEDrine SULFATE INJ 50 MG/ML AMP ONE (11:06)
--- NOTE | 2016-11-02 12:21 | DIAGNOSTIC IMAGING REPORT ---
LUMBAR SPINE, INTRAOPERATIVE FLUOROSCOPY HISTORY: L4-L5 decompression and fusion. FLUOROSCOPY TIME: 7 seconds. FINDINGS: Intraoperative fluoroscopy was provided for the lumbar spine. A single fluoroscopic spot image of the lower lumbar spine. There is a surgical instrument for placement of a disc spacer at L4-L5. There are is posterior decompression and fusion with pedicle screws at L4-5. IMPRESSION: Fluoroscopy provided for a L4-5 posterior decompression and fusion. Electronically signed by: Rashawn Poole M.D. 11/02/2016 12:20 PM Dictated Date/Time: 11/02/2016 12:19 PM
[2016-11-02] MEDS ORDERED: SODIUM CHLORIDE 0.9% 1000ML 1,000 ML IV SCH (12:34)
--- NOTE | 2016-11-02 12:39 | [facility] Operative Report ---
Operative Report Operative Date Nov 02, 2016. Pre-Operative Diagnosis Spondylisthesis L4-L5, nerve root entrapment, disk herniation of lumbar spine Post-Operative Diagnosis Spondylisthesis L4-L5, nerve root entrapment, disk herniation of lumbar spine Procedure(s) Performed L4-L5 Discectomy, with interbody Fusion Surgeon Dr. Ceja Personal Lines Underwriter Surgeon(s) Lawson Ludwig PA-C Estimated Blood Loss 200CC Findings Spondylolisthesis L4 5 lumbar spine. Disc herniation and severe stenosis lumbar spine all at L4 5 Specimens None per surgeon Complication(s) None Disposition Recovery Room / PACU Indications Indications Severe pain and lower extremity pain weakness and numbness failure of outpatient narcotics and anti-inflammatory agents Description of Procedure Description of the procedure Patient was taken to the operating room [facility] placed prone on the Guru table. First scrubbed with Betadine prep with ChloraPrep. Patient draped sterile Made a skin incision fashion incision L4 5 lumbar spine Rogelio we came down on the facet joints and lamina put in a deep self-retaining retractor. We use revision strategies carefully getting the dura free ligamentum flavum free as well. The nerve roots were at the 45 interval. The spondylolisthesis had reduced then safely got pedicle screws and forms and 5 bilaterally on the right-hand side was more symptomatic side we also retracted the dura towards the left. Able do a formal and complete discectomy at L4 5. We also completed the foraminotomies. Then using interbody spacer at the 45 interval measuring 9 mm in height 10 mm across and [address] depth is place in the discectomy site at L4 5 lumbar spine locked down the construct Ganter closure. We closed approximately 5000 mL of fluid pack some bone graft over the transverse processes Gelfoam over the dura. Vancomycin placed deep to the wound. A Hemovac drain placed as well. Close fascia fashion with 1 Vicryl suture to all in the subcuticular layer. 3-0 nylon used on the skin surface sterile pressure dressings applied patient returned supine extubated to PACU stable no complications. Implants used by the Feniks. He needle count correct at the close and no complications thank you Nerve roots at L4 5 interspace were decompressed I attest to the content of the Intraoperative Record and any orders documented therein. Any exceptions are noted below.
[2016-11-02] MEDS ORDERED: LORAZEPAM 1 MG TAB PO PRN (12:45)
[2016-11-02] MEDS ORDERED: METOCLOPRAMIDE HCL INJ 5 MG/ML 2 ML VIAL IV PRN (12:45)
[2016-11-02] MEDS ORDERED: PROMETHAZINE HCL INJ 12.5 MG in SODIUM CHLORIDE 0.9% 50ML 50 ML IV PRN (12:45)
[2016-11-02] MEDS ORDERED: LORAZEPAM INJ 1 MG in SYRINGE 0.5 ML IV PRN (12:45)
[2016-11-02] MEDS ORDERED: NALOXONE HCL 0.4 MG/1 ML VIAL/CARP IV PRN (12:45)
[2016-11-02] MEDS ORDERED: MAGNESIUM HYDROXIDE SUSP 30 ML UDC PO PRN (12:45)
[2016-11-02] MEDS ORDERED: ACETAMINOPHEN 325 MG TAB PO PRN (12:45)
[2016-11-02] MEDS ORDERED: HYDROmorphone HCL 0.5MG/ML 50 ML CASSETTE ONE (12:45)
--- NOTE | 2016-11-02 13:14 | Anesthesiology Progress Note ---
Anesthesia Post Op Note Date & Time Nov 02, 2016 at 13:14 Vital Signs Pain Intensity: 0 Vital Signs Past 12 Hours Date Time Temp Pulse Resp B/P (MAP) Pulse Ox O2 Delivery O2 Flow Rate FiO2 11/02/16 13:05 50 16 146/64 99 Nasal Cannula 4 11/02/16 12:55 63 16 157/77 99 Oxymask 10 11/02/16 12:45 75 16 163/77 99 Oxymask 10 11/02/16 12:37 36.1 88 16 164/76 100 Oxymask 10 11/02/16 08:26 36.6 67 18 148/87 (107) 100 Room Air Notes Mental Status: alert / awake / arousable, participated in evaluation Pt Amnestic to Procedure: Yes Nausea / Vomiting: adequately controlled Pain: adequately controlled Airway Patency, RR, SpO2: stable & adequate BP & HR: stable & adequate Hydration State: stable & adequate Anesthetic Complications: no major complications apparent
[2016-11-02 13:17] LABS: HEMATOCRIT 34.7 % (37-47)
[2016-11-02] MEDS: HYDROmorphone HCL 0.5MG/ML 50 ML CASSETTE IV PRN ×3 (13:36→23:14)
[2016-11-02] MEDS: ONDANSETRON INJ 2 MG/ML 2 ML VIAL IV PRN ×2 (13:49→21:48)
[2016-11-02] MEDS: SODIUM CHLORIDE 0.9% 1000ML 1,000 ML IV SCH (14:23)
[2016-11-02] MEDS: KETOROLAC TROMETHAMINE 15 MG/ML VIAL IV. SCH ×2 (15:56→21:38)
[2016-11-02] MEDS: CEFAZOLIN IV 2,000 MG in DEXTROSE 5% 50ML 50 ML IV SCH (17:33)
[2016-11-02] MEDS ORDERED: ASPIRIN 81 MG ECTAB PO SCH (21:00)
[2016-11-02] MEDS: DEXAMETHASONE INJ 10 MG in SYRINGE 0 ML IV SCH (21:37)
[2016-11-03] VITALS (7 sets, daily range): BP systolic 122–150; BP diastolic 62–79; PULSE 58–73; TEMP 36.3–36.9; O2SAT 96–100
[2016-11-03] MEDS: CEFAZOLIN IV 2,000 MG in DEXTROSE 5% 50ML 50 ML IV SCH ×2 (01:55→09:38)
[2016-11-03] MEDS: SODIUM CHLORIDE 0.9% 1000ML 1,000 ML IV SCH (01:56)
[2016-11-03] MEDS: KETOROLAC TROMETHAMINE 15 MG/ML VIAL IV. SCH ×3 (03:40→16:00)
[2016-11-03] MEDS ORDERED: NURSING DECISION MEDICATION ORDER SCH (05:30)
[2016-11-03] MEDS: DEXAMETHASONE INJ 10 MG in SYRINGE 0 ML IV SCH ×2 (05:36→13:28)
[2016-11-03] MEDS ORDERED: BISACODYL 5 MG TABEC PO PRN (06:00)
[2016-11-03] MEDS ORDERED: BISACODYL 10 MG SUPP PR PRN (06:00)
[2016-11-03] MEDS ORDERED: DC PCA SCH ×2 (06:00→08:00)
[2016-11-03] MEDS: HYDROmorphone HCL 0.5MG/ML 50 ML CASSETTE IV PRN (06:57)
--- NOTE | 2016-11-03 07:24 | Discharge Instructions ---
Discharge Instructions Date of Service Nov 03, 2016. Admission Reason for Admission: Disc Herniation L4-L5 Discharge Discharge Diagnosis / Problem: same Discharge Goals Goal(s): Improve function Activity Recommendations Activity Limitations: as noted below Lifting Limitations: until after follow-up appointment Exercise/Sports Limitations: until after follow-up appointment May Resume Sexual Activity: after follow-up appointment Shower/Bathe: keep incision dry . Instructions / Follow-Up Instructions / Follow-Up MEDICATIONS: Please take your prescriptions as instructed at your pre-op appointment. SPECIAL CARE: The following information is intended to answer some of the common questions and concerns regarding your surgery. Each patient is an individual and receives individual counselling throughout the course of treatment, from diagnosis to surgery all the way through recovery. What follows is not an exhaustive list, but should be a useful guide to some of the common questions and concerns patients have regarding their surgeries. These are not provided to keep you from calling us; rather, they give you something accurate and concrete to reference as you recover from your procedure. If you need us, we are available to you. As always, if you are not sure about something, call us at [phone]. MEDICAL EMERGENCIES: For these conditions, call 911 or go to your local hospital-based Emergency Department - not [facility] or equivalent. * Paralysis * Severe chest pain or difficulty breathing * Swelling or redness of either leg Spine procedures can be rather complex and though complications are rare, they do occur. In such cases, effective advice regarding emergency situations cannot always be addressed over the telephone. You may be referred to the emergency department for more effective management of your problem. Activity Limitations: It is important to give your body time to heal, so please limit your activities : * In general, don't do anything that moves your spine too much. You should avoid contact sports, twisting or heavy lifting while you recover. * 5-10 pounds is all you should attempt to lift. * You should not plan on driving for approximately 3 weeks and you should avoid traveling more than 30-45 minutes at a time. Longer trips should be broken down with walking breaks spaced appropriately. * Physical therapy is not usually required. * Walking and good posture practices will help you recover and regain your function. * Avoid straining or sudden changes in position. * In general, the goal is to take it easy and recover. Don't cause any new problems. Just relax. Showers: * Do not take a bath, use a Jacuzzi or hot tub or otherwise submerge your incision. * It is usually safe to take a shower 4-5 days after your surgery. * Your incision does not require any special creams or ointments. * Simply clean it with soap and water, dry and re-dress with a clean bandage afterwards. Incision: * Keep incision clean, dry and protected until your first follow-up appointment. * Some amount of drainage and redness is normal. Any drainage should be fairly clear and not have a foul odor. * If you feel anything is wrong or you have excessive drainage, please call us. * Your stitches and loc will be removed 10-14 days after your surgery. At the time of your first post-op visit. * Neck surgeries are typically closed with a suture underneath the skin. The steri-strips over the incision should be maintained until we see you in the office. Bracing: * You may be provided with a back or neck brace to encourage good posture and prevent injury. It will remind you not to do too much as you heal and will alert others to the fact that you have had a surgery. * Back braces may be removed for showers and when you are resting at home. They must be worn when you are walking around for any period of time or for travel. * For neck surgery, you will likely be provided with two cervical collars. The soft collar ([place] or foam rubber) is worn most commonly throughout the day and while sleeping. The plastic collar (provided at the hospital) is for showering/bathing. * Except while eating, collars should remain in place. More specifically, bracing is provided for a purpose and should be worn. * Please obtain your brace or collars prior to your operation and bring them to the hospital with you on the day of surgery. * You should also bring your collars to your post-op appointment with Dr. Ceja. You should always take good care of your body and practice healthy habits, especially following surgery. You should: * Follow your doctor's treatment plan * Sit and stand properly with good posture (ears over shoulders, shoulders over hips) Don't slouch * Learn to lift correctly * Exercise regularly (low-impact aerobic exercise is especially good, but check with your doctor first) * Generally, be up and walking for 5-10 minutes at a time at least 3-4 times per day from the day you get home * Increasing walking to tolerance until you can walk for 20-30 minutes at a time * Attain and maintain a healthy body weight * Eat healthy foods ( a well-balanced, low-fat diet rich in fruits and vegetables) and get enough calcium * Avoid excessive use of alcohol When to call our office - If you notice any of the following: * Increased pain not relieve by pain medicine * Fevers greater then 100 degrees F, chills or flu symptoms * Increased redness around incision * Drainage from the incision that is not clear * Any foul smelling drainage * Swelling or fluid collection beneath the skin Miscellaneous: * In the hospital, you may be given a walker or cane for support while walking. These are temporary needs and are intended to prevent injuries due to falls. You may discontinue them when you feel strong and steady enough on your feet. * Sleep in a comfortable position. We find that many patients find a lounge chair or recliner with several pillows to be beneficial in the early post-operative period. * The support stockings should be used for 7-10 days and may be discontinued when you are back to walking more and conducting usual household activities. No problem is insignificant. We are here to help you and get you well. Contact us at [phone]. Definitions: Foraminotomy: If part of the disc or a bone spur (osteophyte) is pressing on a nerve as it leaves the vertebra (through an exit called the foramen), a foraminotomy may be done. Otomy means "to make an opening." A foraminotomy is making the opening of the foramen larger, so the nerve can exit without being compressed. Laminotomy: Similar to the foraminotomy, a laminotomy makes a larger opening, this time in your bony plate protecting your spinal canal and spinal cord (the lamina). The lamina may be pressing on your nerve, so the surgeon may make more room for the nerves using a laminotomy. Laminectomy: Sometimes, a laminotomy is not sufficient. The surgeon may need to remove all or part of the lamina. This procedure is called a laminectomy. This can often be done at many levels without any harmful effects. Current Hospital Diet Patient's current hospital diet: Regular Diet Discharge Diet Recommended Diet: Regular Diet Procedures Procedures Performed: L4-L5 Discectomy, with interbody Fusion Pending Studies Studies pending at discharge: no Medical Emergencies . Who to Call and When: Medical Emergencies: If at any time you feel your situation is an emergency, please call 911 immediately. . Non-Emergent Contact Non-Emergency issues call your: Primary Care Provider Call Non-Emergent contact if: you have any medication questions . "Provider Documentation" section prepared by Juan Diego Ceja. . VTE Core Measure Inpt VTE Proph given/why not?: Treatment not indicated
--- NOTE | 2016-11-03 07:26 | Progress Note ---
Subjective Date of Service: Nov 03, 2016. Subjective Pt evaluation today including: conversation w/ patient Voiding: no voiding problems Problem List Medical Problems: (1) Facial contusion Status: Acute (2) GI bleed Status: Acute (3) Iliopsoas bursitis Status: Acute (4) Iliopsoas bursitis of left hip Status: Acute Review of Systems All Other Systems: Reviewed and Negative Objective Vital Signs Date Time Temp Pulse Resp B/P (MAP) Pulse Ox O2 Delivery O2 Flow Rate FiO2 11/03/16 03:31 36.3 67 16 136/78 (97) 98 Room Air 11/03/16 00:15 Room Air 11/02/16 23:10 36.3 56 16 108/68 (81) 98 Room Air 11/02/16 20:39 36.7 54 16 93/56 (68) 97 Room Air 11/02/16 16:40 36.6 46 16 116/67 (83) 100 Nasal Cannula 2.0 11/02/16 15:40 36.5 47 16 103/58 (73) 100 Nasal Cannula 2.0 11/02/16 15:17 100 Nasal Cannula 2.0 11/02/16 14:09 36.8 49 18 109/70 (83) 100 Nasal Cannula 3.0 11/02/16 13:40 100 Nasal Cannula 4.0 11/02/16 13:40 Nasal Cannula 4.0 11/02/16 13:15 36.2 53 16 150/67 99 Nasal Cannula 4 11/02/16 13:05 50 16 146/64 99 Nasal Cannula 4 11/02/16 12:55 63 16 157/77 99 Oxymask 10 11/02/16 12:45 75 16 163/77 99 Oxymask 10 11/02/16 12:37 36.1 88 16 164/76 100 Oxymask 10 11/02/16 08:26 36.6 67 18 148/87 (107) 100 Room Air Laboratory Results Last 24 Hours Test 11/02/16 12:58 Hemoglobin 11.9 g/dL Hematocrit 34.7 % Hepatitis C Antibody Screen NEG Assessment and Plan Patient alert oriented this morning on rounds. No confusion no shortness of breath no chest pain. Up and ambulatory taking by mouth. Disposition we'll try to get Esterlla up and walking today. Change her dressing pulled her drain later on this morning. She voiced that she would like to go home this evening if she is improved stable we will discharge her home. She is medication home for pain she has a walker for ambulatory assistance
[2016-11-03] MEDS ORDERED: OXYCODONE/ACETAMINOPHEN 5-325 TAB PO PRN ×2 (08:00)
[2016-11-03] MEDS ORDERED: HYDROmorphone INJ 1 MG/ML SYR IV PRN (08:00)
[2016-11-03] MEDS ORDERED: HYDROmorphone INJ 2 MG/ML SYR/VIAL IV PRN (08:00)
--- NOTE | 2016-11-03 08:36 | Anesthesiology Progress Note ---
Anesthesia Post Op Note Date & Time Nov 03, 2016 at 08:36 Vital Signs Pain Intensity: 2.0 Vital Signs Past 12 Hours Date Time Temp Pulse Resp B/P (MAP) Pulse Ox O2 Delivery O2 Flow Rate FiO2 11/03/16 08:04 Room Air 11/03/16 07:47 36.5 16 150/70 (96) 96 Room Air 11/03/16 03:31 36.3 67 16 136/78 (97) 98 Room Air 11/03/16 00:15 Room Air 11/02/16 23:10 36.3 56 16 108/68 (81) 98 Room Air 11/02/16 20:39 36.7 54 16 93/56 (68) 97 Room Air Notes Mental Status: alert / awake / arousable, participated in evaluation Pt Amnestic to Procedure: Yes Nausea / Vomiting: adequately controlled Pain: adequately controlled Airway Patency, RR, SpO2: stable & adequate BP & HR: stable & adequate Hydration State: stable & adequate Anesthetic Complications: no major complications apparent
[2016-11-03] MEDS ORDERED: CALCIUM 600MG + VIT D 400 IU TAB PO SCH (09:00)
[2016-11-03] MEDS ORDERED: ATORVASTATIN 10 MG TAB PO SCH (09:00)
[2016-11-03] MEDS ORDERED: RANITIDINE HCL 150 MG TAB PO SCH (09:00)
[2016-11-03] MEDS ORDERED: POLYETHYLENE (MIRALAX) 17 GM PACK PO SCH (09:00)
[2016-11-03] MEDS ORDERED: MULTIVITAMIN TAB PO SCH (09:00)
[2016-11-03] MEDS ORDERED: LISINOPRIL 20 MG TAB PO SCH (09:00)
[2016-11-03] MEDS: ONDANSETRON INJ 2 MG/ML 2 ML VIAL IV PRN (16:00)
--- NOTE | 2016-11-04 01:24 | DISCHARGE SUMMARY ---
SUBJECTIVE: Minimal complaints of pain, lower quadrant and no chest pain, shortness of breath or confusion. No neurological deficits. OBJECTIVE: Vital signs stable, alert, oriented. Neurologically intact. ASSESSMENT: Status post lumbar spine decompression and fusion, L4-5 lumbar spine. DISPOSITION: We will discharge her home later on this evening. She has medication at home for pain. She has a walker at home as well. She has a followup appointment approximately 10 days.
== END 2016-11-03 18:47 | disposition home or self-care (01) | DRG 460 ==
LOC: C.ACU 08:02 → C.3E 12:40 → ENRESERV 13:19
PROVIDERS: ADMIT Orthopaedic Surgery Orthopaedic Surgery of the Spine; ATTEND Orthopaedic Surgery Orthopaedic Surgery of the Spine
PROC: 0ST20ZZ Resection of Lumbar Vertebral Disc, Open Approach (ICD-10-PCS; principal; 2016-11-02 10:00)
PROC: 0SG00AJ Fusion of Lumbar Vertebral Joint with Interbody Fusion Device, Posterior Approach, Anterior Column, Open Approach (ICD-10-PCS; principal; 2016-11-02 10:00)
DX: M43.16 Spondylolisthesis, lumbar region (principal); M51.26 Other intervertebral disc displacement, lumbar region; G58.8 Other specified mononeuropathies; I12.9 Hypertensive chronic kidney disease with stage 1 through stage 4 chronic kidney disease, or unspecified chronic kidney disease; N18.3 Chronic kidney disease, stage 3 (moderate); E78.5 Hyperlipidemia, unspecified; K21.9 Gastro-esophageal reflux disease without esophagitis; I73.9 Peripheral vascular disease, unspecified; I65.29 Occlusion and stenosis of unspecified carotid artery; M19.90 Unspecified osteoarthritis, unspecified site; F17.210 Nicotine dependence, cigarettes, uncomplicated; E66.9 Obesity, unspecified; Z68.30 Body mass index [BMI] 30.0-30.9, adult; Z79.82 Long term (current) use of aspirin; Z79.899 Other long term (current) drug therapy

== ENCOUNTER 2016-11-24 08:45 | Emergency (ER) | payer OTHER ==
[~2016-11-24] VITALS: Ht 167.6 cm; Wt 84.2 kg
[~2016-11-24 08:45] MED LIST changes: -CEFAZOLIN 2000 MG/60 ML D5W 60 ML IV SCH; -LACTATED RINGER'S 1000ML 1,000 ML IV SCH; -LACTATED RINGER'S 1000ML IV SCH
[2016-11-24 08:56] VITALS: TEMP 37.1; Ht 167.6 cm; Wt 84.2 kg
--- NOTE | 2016-11-24 10:16 | DIAGNOSTIC IMAGING REPORT ---
LEFT HAND MIN 3 VIEWS ROUTINE HISTORY: 66 years-old Female l hand pain s/p fall COMPARISON: Left] radiographs 01/28/2016 TECHNIQUE: 3 views of the left hand FINDINGS: There is mild to moderate soft tissue swelling about the wrist and dorsal hand without acute fracture or dislocation identified. Interphalangeal and intercarpal degenerative changes are noted. Partially ossified bone fragments are seen within the expected region of the ulnar styloid compatible with remote trauma. Mild radiocarpal joint space narrowing as well as first digit carpometacarpal osteoarthritis noted. Negative for radiopaque foreign body. Bones are mildly demineralized. IMPRESSION: 1. Mild to moderate soft tissue swelling about the wrist and dorsal hand without acute fracture or dislocation identified. 2. Degenerative changes about the wrist and hand as above with evidence of remote fracture involving the distal ulna. The above report was generated using voice recognition software. It may contain grammatical, syntax or spelling errors. Electronically signed by: Luis Dunlap M.D. 11/24/2016 10:15 AM Dictated Date/Time: 11/24/2016 10:12 AM
--- NOTE | 2016-11-24 10:19 | DIAGNOSTIC IMAGING REPORT ---
RIGHT ELBOW MIN 3 VIEWS ROUTINE HISTORY: 66 years-old Female acute right-sided elbow pain s/p fall COMPARISON: None available TECHNIQUE: 3 views of the right elbow FINDINGS: Lateral view is suboptimal secondary to positioning. There is a suggested small joint effusion. No acute fracture or dislocation is identified. There is mild spurring of the olecranon process as well as the lateral and medial epicondyles of the distal humerus. There is mild soft tissue swelling dorsally about the elbow without radiopaque foreign body. Minimal spurring is noted involving the coronoid process. IMPRESSION: 1. Suspected small joint effusion without acute fracture or dislocation identified. If of further clinical concern for radiographic occult fracture, follow-up radiographs may be considered. 2. Degenerative changes about the elbow. 3. Mild dorsal soft tissue swelling. The above report was generated using voice recognition software. It may contain grammatical, syntax or spelling errors. Electronically signed by: Luis Dunlap M.D. 11/24/2016 10:18 AM Dictated Date/Time: 11/24/2016 10:15 AM
[2016-11-24 10:52] VITALS: BP 119/75; PULSE 72; O2SAT 98
--- NOTE | 2016-11-24 16:00 | EMERGENCY ROOM VISIT NOTE ---
History Report prepared by Brandinibjonny: Cristian Bolton Under the Supervision of: Dr. Philippe Chen D.O. First contact with patient: 09:23 Chief Complaint: HAND PAIN/INJURY Stated Complaint: LEFT HAND SWOLLEN-AFTER FALL History of Present Illness The patient is a 66 year old female who presents to the Emergency Room with complaints of constant left hand pain s/p fall occurring yesterday. The patient states that she tripped while walking through a parking garage and landed on her left hand. She is not on any blood thinners. She did not lose consciousness. The patient denies any headaches, change in vision, or vomiting. She notes that her right elbow feels a little sore as well after the fall. She notes that she recently had back surgery, but currently denies any back pain. Source of History: patient Onset: Yesterday Position: hand (left) Timing: constant Associated Symptoms: No LOC, No headache, No back pain Note: Additional symptoms: right elbow pain. Review of Systems See HPI for pertinent positives & negatives. A total of 10 systems reviewed and were otherwise negative. Past Medical & Surgical Medical Problems: (1) Benign hypertension (2) Benign neoplasm of colon (3) Fever (4) Gastroesophageal reflux disease (5) Hypercholesterolemia (6) Localized, primary osteoarthritis of the lower leg (7) Lumbar disc herniation (8) Lung mass (9) Rheumatoid arthritis (10) Spondylolisthesis, lumbar region (11) Syncope (12) Tobacco user Surgical Problems: (1) H/O: hysterectomy (2) History of tonsillectomy and adenoidectomy (3) Hx of appendectomy Family History Diabetes mellitus FH: cancer Hypertension Social History Smoking Status: Current Every Day Smoker Alcohol Use: none Drug Use: none Marital Status: Housing Status: lives with significant other Occupation Status: employed Current/Historical Medications Scheduled Aspirin (Lino Aspirin Ec Low Dose), 1 TAB PO QPM Atorvastatin (Lipitor), 10 MG PO QAM Calcium Carbonate-Vitamin D (Calcium 600 + D), 2 TABS PO QAM Folic Acid (Folvite), 1 MG PO DAILY Lisinopril (Zestril), 20 MG PO QAM Methotrexate (Methotrexate), 15 MG PO WK Multivitamin (Multivitamin), 1 TAB PO QAM Ranitidine (Zantac), 150 MG PO QAM Allergies Coded Allergies: Wasp (Verified Allergy, Severe, mouth/tongue swelling, 11/24/16) Yellow Jacket (Verified Allergy, Severe, mouth/tongue swelling, 11/24/16) Physical Exam Vital Signs Date Time Temp Pulse Resp B/P (MAP) Pulse Ox O2 Delivery O2 Flow Rate FiO2 11/24/16 10:52 72 18 119/75 98 11/24/16 08:56 37.1 83 18 127/67 100 Room Air Physical Exam GENERAL: alert, well appearing, well nourished, no distress, non-toxic HEAD: normal cephalic. Bruising above the left eye. EYE EXAM: normal conjunctiva, PERRL and EOM's grossly intact OROPHARYNX: no exudate, no erythema, lips, buccal mucosa, and tongue normal and mucous membranes are moist EARS: TMs clear b/l NECK: supple, no nuchal rigidity, no adenopathy, non-tender CHEST: stable to compression anteriorly and posteriorly LUNGS: clear to auscultation. Normal chest wall mechanics HEART: no murmurs, S1 normal and S2 normal ABDOMEN: abdomen soft, non-tender, normo-active bowel sounds, no masses, no rebound or guarding. PELVIS: stable to compression anteriorly and posteriorly BACK: Back is symmetrical on inspection and there is no deformity, no midline tenderness, no CVA tenderness. Back brace in place. UPPER EXTREMITIES: Pain with flexion of the right elbow beyond 90 degrees. Bruising on the dorsal aspect of the left hand over the fourth and fifth metacarpals. LOWER EXTREMITIES: full active and passive range of motion of all joints without tenderness to palpation. Abrasion over the right knee. NEURO EXAM: Normal sensorium, cranial nerves II-XII grossly intact, normal speech, no gross weakness of arms, no gross weakness of legs. GCS: 15. Medical Decision & Procedures ER Provider Diagnostic Interpretation: Radiology results as stated below per my review and the radiologist's interpretation: LEFT HAND MIN 3 VIEWS ROUTINE FINDINGS: There is mild to moderate soft tissue swelling about the wrist and dorsal hand without acute fracture or dislocation identified. Interphalangeal and intercarpal degenerative changes are noted. Partially ossified bone fragments are seen within the expected region of the ulnar styloid compatible with remote trauma. Mild radiocarpal joint space narrowing as well as first digit carpometacarpal osteoarthritis noted. Negative for radiopaque foreign body. Bones are mildly demineralized. IMPRESSION: 1. Mild to moderate soft tissue swelling about the wrist and dorsal hand without acute fracture or dislocation identified. 2. Degenerative changes about the wrist and hand as above with evidence of remote fracture involving the distal ulna. The above report was generated using voice recognition software. It may contain grammatical, syntax or spelling errors. Electronically signed by: Luis Dunlap M.D. RIGHT ELBOW MIN 3 VIEWS ROUTINE FINDINGS: Lateral view is suboptimal secondary to positioning. There is a suggested small joint effusion. No acute fracture or dislocation is identified. There is mild spurring of the olecranon process as well as the lateral and medial epicondyles of the distal humerus. There is mild soft tissue swelling dorsally about the elbow without radiopaque foreign body. Minimal spurring is noted involving the coronoid process. IMPRESSION: 1. Suspected small joint effusion without acute fracture or dislocation identified. If of further clinical concern for radiographic occult fracture, follow-up radiographs may be considered. 2. Degenerative changes about the elbow. 3. Mild dorsal soft tissue swelling. The above report was generated using voice recognition software. It may contain grammatical, syntax or spelling errors. Electronically signed by: Luis Dunlap M.D. ED Course ED COURSE: Vital signs were reviewed and appeared normal The patients medical record was reviewed The above diagnostic studies were performed and reviewed. ED treatments and interventions as stated above. 0937: The patient was evaluated in room B10. A complete history and physical examination was performed. 1043: Upon reevaluation, the patient is resting comfortably. I discussed my findings with the patient and she understands and agrees with the treatment plan. Based on the patients age, coexisting illnesses, exam and lab findings the decision to treat as an outpatient was made. The patient remained stable while under my care. The patient appeared well at the time of discharge. Medical Decision Differential diagnoses include major intracranial, cervical, spinal, thoracic, abdominal, pelvic and neurologic injury. Fracture, contusion, sprain, strain, laceration, abrasions included as well. Patient is a 66-year-old female who presents the ER for mechanical fall with elbow and hand pain. X-rays show no obvious fracture. There is no scaphoid tenderness. Patient was updated regards to findings. She was discharged to follow-up with PCP/orthopedics within the next 3-5 days. Any continued tenderness she will need repeat x-rays to make sure there is no missed occult fracture. Discussed with Pt concerning signs and symptoms to watch out for. Pt was instructed to follow up with their PCP and discussed with the patient their option to return to the ED at anytime for persistent or worsening symptoms. The appropriate anticipatory guidance and out-patient management, including indications for return to the emergency department, were explained at length to the patient and understood. Medication Reconcilliation Current Medication List: was personally reviewed by me Blood Pressure Screening Patient's blood pressure: Normal blood pressure Blood pressure disposition: Did not require urgent referral Impression Primary Impression: Hand contusion Additional Impression: Elbow contusion Scribe Attestation The scribe's documentation has been prepared under my direction and personally reviewed by me in its entirety. I confirm that the note above accurately reflects all work, treatment, procedures, and medical decision making performed by me. Departure Information Dispostion Home / Self-Care Referrals Victor Hugo Walker M.D. (PCP) Forms HOME CARE DOCUMENTATION FORM, IMPORTANT VISIT INFORMATION Patient Instructions ED Contusion Hand, My [facility] Additional Instructions Please follow up with your primary care doctor with in the next 24 hours. Any worsening of your symptoms, please return to the ED immediately. This includes worsening pain, persistent pain for 4-5 days as there is always a possibility of missing an occult fracture or any other concerning signs or symptoms from your standpoint. Please take Motrin or Tylenol as need for pain. Problem Qualifiers Primary Impression: Hand contusion Encounter type: initial encounter Laterality: unspecified laterality Qualified Codes: S60.229A - Contusion of unspecified hand, initial encounter Additional Impression: Elbow contusion Encounter type: initial encounter Laterality: unspecified laterality Qualified Codes: S50.00XA - Contusion of unspecified elbow, initial encounter
== END 2016-11-24 10:53 | disposition home or self-care (01) ==
LOC: C.EDB 08:46
DX: S60.222A Contusion of left hand, initial encounter (principal); S50.01XA Contusion of right elbow, initial encounter; W01.0XXA Fall on same level from slipping, tripping and stumbling without subsequent striking against object, initial encounter; Y92.89 Other specified places as the place of occurrence of the external cause; S80.211A Abrasion, right knee, initial encounter; I10 Essential (primary) hypertension; D12.6 Benign neoplasm of colon, unspecified; K21.9 Gastro-esophageal reflux disease without esophagitis; E78.5 Hyperlipidemia, unspecified; M51.26 Other intervertebral disc displacement, lumbar region; R91.8 Other nonspecific abnormal finding of lung field; M06.9 Rheumatoid arthritis, unspecified; M43.16 Spondylolisthesis, lumbar region; F17.200 Nicotine dependence, unspecified, uncomplicated; Z79.82 Long term (current) use of aspirin; Z83.3 Family history of diabetes mellitus

== ENCOUNTER 2017-07-13 21:57 | Emergency (ER) | payer OTHER ==
[~2017-07-13] VITALS: Ht 167.6 cm; Wt 83.2 kg
[~2017-07-13 21:57] MED LIST changes: +ATOR10TA82 PO; -ATOR10TA88 PO; -FOLI1TAB7 PO; +FOLI1TAB8 PO
[2017-07-13 22:02] VITALS: TEMP 36.8; Ht 167.6 cm; Wt 83.2 kg
[2017-07-13] MEDS ORDERED: DiphenhydrAMINE HCL 50 MG/ML VIAL IV STA (22:30)
[2017-07-13] MEDS ORDERED: SODIUM CHLORIDE 0.9% 500ML 500 ML IV STA (22:30)
[2017-07-13] MEDS ORDERED: PROCHLORPERAZINE 5 MG/ML 2 ML VIAL IV STA (22:30)
--- NOTE | 2017-07-13 22:52 | EMERGENCY ROOM VISIT NOTE ---
History Report prepared by Deshaun: Dai Diop Under the Supervision of: Dr. Ritika Neal M.D. First contact with patient: 22:23 Chief Complaint: NEURO SYMPTOMS Stated Complaint: HEADACHE- DISCOMFORT IN LEFT JAW AND ARM History of Present Illness The patient is a 67 year old female who presents to the Emergency Room with complaints of worsening neuro symptoms starting today. The patient states that she has had a headache since this morning that she thought was a sinus headache , but it radiates into the left side of her jaw and down her arm. She states that this evening she started to feel lightheaded, nauseated, and vomited. She reports that she checked her blood pressure and it was high. She notes that she took a baby aspirin. She reports that when she walks today she becomes short of breath. The patient denies chest pain, fever, abdominal pain, diarrhea, urinary symptoms, and a cardiac history. She notes a history of hypertension and high cholesterol. She notes that she smokes 3 cigarettes a day. Source of History: patient Onset: today Position: other (global) Quality: other (neurological symptoms) Timing: worsening Associated Symptoms: + headache, + SOB, + nausea, + vomiting, No fevers, No chest pain, No abdominal pain, No diarrhea, No urinary symptoms Note: The patient complains of lightheadedness. Review of Systems See HPI for pertinent positives & negatives. A total of 10 systems reviewed and were otherwise negative. Past Medical & Surgical Medical Problems: (1) Asthma (2) Benign hypertension (3) Benign neoplasm of colon (4) Fever (5) Gastroesophageal reflux disease (6) HTN (hypertension) (7) Hypercholesterolemia (8) Localized, primary osteoarthritis of the lower leg (9) Lumbar disc herniation (10) Lung mass (11) Rheumatoid arthritis (12) Spondylolisthesis, lumbar region (13) Syncope (14) Tobacco user Surgical Problems: (1) H/O: hysterectomy (2) History of tonsillectomy and adenoidectomy (3) Hx of appendectomy Family History Diabetes mellitus FH: cancer Gallbladder disease Heart disease Hypertension Seizures Social History Smoking Status: Current Every Day Smoker Alcohol Use: none Drug Use: none Marital Status: Housing Status: lives with significant other Occupation Status: employed Current/Historical Medications Scheduled Aspirin (Lino Aspirin Ec Low Dose), 1 TAB PO QPM Atorvastatin (Lipitor), 10 MG PO QAM Calcium Carbonate-Vitamin D (Calcium 600 + D), 2 TABS PO QAM Lisinopril (Zestril), 20 MG PO QAM Methotrexate (Methotrexate), 15 MG PO WK Pantoprazole (Protonix), 40 MG PO DAILY Ranitidine (Zantac), 150 MG PO QAM Allergies Coded Allergies: Wasp (Verified Allergy, Severe, mouth/tongue swelling, 07/13/17) Yellow Jacket (Verified Allergy, Severe, mouth/tongue swelling, 07/13/17) Physical Exam Vital Signs Date Time Temp Pulse Resp B/P (MAP) Pulse Ox O2 Delivery O2 Flow Rate FiO2 07/13/17 23:27 78 18 145/88 98 Room Air 07/13/17 22:55 75 07/13/17 22:02 36.8 85 18 133/74 97 Room Air Physical Exam Vital signs reviewed. General: Well-appearing, in no significant distress. HEENT: No scleral icterus, PERRLA, neck supple. Atraumatic. Cardiovascular: Regular rate and rhythm, no extra sounds. Pulmonary: Clear to auscultation bilaterally, normal work of breathing. Abdomen: Soft, nontender, nondistended, positive bowel sounds. Musculoskeletal: Atraumatic, no peripheral edema. Neurologic: Patient awake alert and oriented x 3, full strength in all 4 extremities. Cranial nerves 2 through 12 grossly intact. Skin: Warm, dry, no rash Medical Decision & Procedures ER Provider Diagnostic Interpretation: Radiology results as stated below per my review and radiologist interpretation: CHEST ONE VIEW PORTABLE HISTORY: 67 years-old Female CP acute atypical chest pain COMPARISON: Chest radiograph 01/27/2016 TECHNIQUE: Portable AP view of the chest FINDINGS: Cardiomediastinal and hilar silhouettes are within normal limits. Atherosclerosis of the aorta. No pneumothorax, pleural effusion, focal airspace consolidation or overt pulmonary edema. Degenerative changes are seen within the shoulders and spine. Calcific tendinosis of the left shoulder rotator cuff. IMPRESSION: No acute process. The above report was generated using voice recognition software. It may contain grammatical, syntax or spelling errors. Electronically signed by: Luis Dunlap M.D. 07/13/2017 10:51 PM Dictated Date/Time: 07/13/2017 10:[address] HEAD: Comparison: 01/28/2016 No evidence of acute infarct, hemorrhage, mass or edema. Minimal mucosal thickening of the paranasal sinuses. No acute osseous abnormalities. Radiologist: Philippe Yee MD Study ready at 23:16 and initial results transmitted at 23:22. Laboratory Results 07/13/17 23:00 Red Blood Count 4.13, Mean Corpuscular Volume 95.2, Mean Corpuscular Hemoglobin 32.2, Mean Corpuscular Hemoglobin Concent 33.8, Mean Platelet Volume 10.4, Neutrophils (%) (Auto) 76.7, Lymphocytes (%) (Auto) 16.0, Monocytes (%) (Auto) 6.7, Eosinophils (%) (Auto) 0.2, Basophils (%) (Auto) 0.2, Neutrophils # (Auto) 4.81, Lymphocytes # (Auto) 1.00, Monocytes # (Auto) 0.42, Eosinophils # (Auto) 0.01, Basophils # (Auto) 0.01 07/13/17 23:00 Test 07/13/17 23:00 White Blood Count 6.26 K/uL (4.8-10.8) Red Blood Count 4.13 M/uL (4.2-5.4) Hemoglobin 13.3 g/dL (12.0-16.0) Hematocrit 39.3 % (37-47) Mean Corpuscular Volume 95.2 fL (80-100) Mean Corpuscular Hemoglobin 32.2 pg (25-34) Mean Corpuscular Hemoglobin Concent 33.8 g/dl (32-36) Platelet Count 232 K/uL (130-400) Mean Platelet Volume 10.4 fL (7.4-10.4) Neutrophils (%) (Auto) 76.7 % Lymphocytes (%) (Auto) 16.0 % Monocytes (%) (Auto) 6.7 % Eosinophils (%) (Auto) 0.2 % Basophils (%) (Auto) 0.2 % Neutrophils # (Auto) 4.81 K/uL (1.4-6.5) Lymphocytes # (Auto) 1.00 K/uL (1.2-3.4) Monocytes # (Auto) 0.42 K/uL (0.11-0.59) Eosinophils # (Auto) 0.01 K/uL (0-0.5) Basophils # (Auto) 0.01 K/uL (0-0.2) RDW Standard Deviation 48.5 fL (36.4-46.3) RDW Coefficient of Variation 14.2 % (11.5-14.5) Immature Granulocyte % (Auto) 0.2 % Immature Granulocyte # (Auto) 0.01 K/uL (0.00-0.02) Anion Gap 6.0 mmol/L (3-11) Est Creatinine Clear Calc Drug Dose 59.0 ml/min Estimated GFR () 66.4 Estimated GFR (Non- 57.3 BUN/Creatinine Ratio 16.1 (10-20) Calcium Level 9.1 mg/dl (8.5-10.1) Magnesium Level 2.0 mg/dl (1.8-2.4) Total Bilirubin 0.7 mg/dl (0.2-1) Direct Bilirubin 0.2 mg/dl (0-0.2) Aspartate Amino Transf (AST/SGOT) 16 U/L (15-37) Alanine Aminotransferase (ALT/SGPT) 21 U/L (12-78) Alkaline Phosphatase 91 U/L (45-117) Troponin I < 0.015 ng/ml (0-0.045) Total Protein 7.0 gm/dl (6.4-8.2) Albumin 3.6 gm/dl (3.4-5.0) Thyroid Stimulating Hormone (TSH) 1.330 uIu/ml (0.300-4.500) Laboratory results per my review. Medications Administered Medications (Trade) Dose Ordered Sig/Jenny Route Start Time Stop Time Status Last Admin Dose Admin Prochlorperazine Edisylate (Compazine Inj) 10 mg NOW STAT IV 07/13/17 22:30 07/13/17 22:33 DC 07/13/17 22:54 10 MG Diphenhydramine HCl (Benadryl Inj) 25 mg NOW STAT IV 07/13/17 22:30 07/13/17 22:33 DC 07/13/17 22:54 25 MG Sodium Chloride 500 ml @ 999 mls/hr Q31M STAT IV 07/13/17 22:30 07/13/17 23:00 DC 07/13/17 22:58 999 MLS/HR ECG Per My Interpretation Indication: nausea Rate (beats per minute): 74 Rhythm: normal sinus Findings: nonspecific-ST abn, no ectopy ED Course 2227: Past medical records reviewed. The patient was evaluated in room B10. A complete history and physical examination was performed. 2230: Ordered NSS 500 ml @ 999 mls/hr IV, Benadryl Inj 25 mg IV, Compazine Inj 10 mg IV. 0029: Upon reevaluation, the patient appeared to have improvement of her symptoms. I discussed findings with her. She verbalized agreement of the treatment plan. The patient was discharged home. Medical Decision Differential diagnosis: Etiologies such as migraine headache, meningitis, sinusitis, CO exposure, ICH, SAH, infection, tumor, headache, sinus thrombosis, arterial dissection, as well as others were entertained. This patient was evaluated and appeared to be in no significant distress. Physical examination reveals a mild hypertension. Patient has no focal neurologic deficits. Chest x-ray was obtained and is clear. Head CT was performed and reveals no evidence of acute intracranial abnormalities. There is some mild paranasal sinus thickening. I suspect the patient is suffering from a migraine type headache. She felt much improved after IV Compazine, IV Benadryl and IV hydration. Laboratory work is fairly unrevealing. The patient was reevaluated and felt comfortable with the plan for discharge. She was discharged to the care of her family will follow with her PCP this week for reevaluation return to the ER for worsening of symptoms or any medical concerns. Medication Reconcilliation Current Medication List: was personally reviewed by me Blood Pressure Screening Patient's blood pressure: Elevated blood pressure Blood pressure disposition: Referred to PCP Impression Primary Impression: Headache Scribe Attestation The scribe's documentation has been prepared under my direction and personally reviewed by me in its entirety. I confirm that the note above accurately reflects all work, treatment, procedures, and medical decision making performed by me. Departure Information Dispostion Home / Self-Care Referrals Victor Hugo Walker M.D. (PCP) Forms HOME CARE DOCUMENTATION FORM, IMPORTANT VISIT INFORMATION, WORK / SCHOOL INSTRUCTIONS Patient Instructions My [facility] Additional Instructions Diagnosis: Headache Please follow-up with your primary care physician for blood pressure recheck. Continue your medications as prescribed. Tylenol 650 mg every 6 hours as needed for pain. Return to the emergency department for worsening of symptoms or any medical concerns per
[2017-07-13 23:07] LABS: BASO % 0.2 %; BASO ABS # 0.01 K/uL (0-0.2); EOS % 0.2 %; EOS ABS # 0.01 K/uL (0-0.5); HEMATOCRIT 39.3 % (37-47); HEMOGLOBIN 13.3 g/dL (12.0-16.0); IG# 0.01 K/uL (0.00-0.02); MEAN CELL VOLUME 95.2 fL (80-100); MEAN CORPUSCULAR HEMOGLOBIN 32.2 pg (25-34); MEAN CORPUSCULAR HGB CONC 33.8 g/dl (32-36); MEAN PLATELET VOLUME 10.4 fL (7.4-10.4); MONO % 6.7 %; MONO ABS # 0.42 K/uL (0.11-0.59); NEUT % 76.7 %; NEUT ABS # 4.81 K/uL (1.4-6.5); PLATELET COUNT 232 K/uL (130-400); RED CELL DISTRIBUTION WIDTH CV 14.2 % (11.5-14.5); RED CELL DISTRIBUTION WIDTH SD 48.5 fL (36.4-46.3); WHITE BLOOD COUNT 6.26 K/uL (4.8-10.8)
[2017-07-13] MEDS ORDERED: PANT40TA PO (23:23)
[2017-07-13 23:27] VITALS: BP 145/88; PULSE 78; O2SAT 98
[2017-07-13 23:39] LABS: ALBUMIN 3.6 gm/dl (3.4-5.0); ALT/SGPT 21 U/L (12-78); AST/SGOT 16 U/L (15-37); BLOOD UREA NITROGEN 16 mg/dl (7-18); CALCIUM 9.1 mg/dl (8.5-10.1); CARBON DIOXIDE 27 mmol/L (21-32); CREATININE 1.02 mg/dl (0.60-1.20); GLUCOSE 105 mg/dl (70-99); POTASSIUM 3.7 mmol/L (3.5-5.1); SODIUM 139 mmol/L (136-145)
[2017-07-13 23:50] LABS: ALKALINE PHOSPHATASE 91 U/L (45-117)
--- NOTE | 2017-07-14 07:06 | DIAGNOSTIC IMAGING REPORT ---
HEAD CT NONCONTRAST CT DOSE: 921.40 mGy.cm HISTORY: Headache. TECHNIQUE: Multiaxial CT images of the head were performed without the use of intravenous contrast. Automated exposure control was utilized for this study. A dose lowering technique was utilized adhering to the principles of ALARA. Comparison: Head CT 01/28/2016. Findings: The paranasal sinuses and mastoid air cells are clear. The calvarium and skull base are intact. The ventricles and sulci are within normal limits. There is no mass, hematoma, midline shift, or acute infarct. Impression: No acute intracranial abnormality. Electronically signed by: Rashawn Poole M.D. 07/14/2017 7:05 AM Dictated Date/Time: 07/14/2017 7:02 AM
== END 2017-07-14 00:35 | disposition home or self-care (01) ==
LOC: C.EDB 21:57
DX: R51 Headache (principal); I10 Essential (primary) hypertension; E78.00 Pure hypercholesterolemia, unspecified; J45.909 Unspecified asthma, uncomplicated; K21.9 Gastro-esophageal reflux disease without esophagitis; M06.9 Rheumatoid arthritis, unspecified; F17.210 Nicotine dependence, cigarettes, uncomplicated; Z79.82 Long term (current) use of aspirin; Z79.899 Other long term (current) drug therapy; Z91.030 Bee allergy status